=== PATIENT | male | born 1970 | race Asian ===

== ENCOUNTER 2021-04-23 12:24 | Emergency (ER) | payer BC ==
[~2021-04-23] VITALS: Ht 160 cm; Wt 72.6 kg
[2021-04-23 12:24] VITALS: BP_SYST 143
[2021-04-23] MEDS ORDERED: MECLIZINE HCL 25 MG TABLET (ANITVERT) PO ONE (13:00)
[2021-04-23 13:35] LABS: BASOPHILS % (AUTO) 0.3 % (0.0-2.0); EOSINOPHILS % (AUTO) 0.1 % (0.0-4.0); HEMATOCRIT 41.4 % (36-54); HEMOGLOBIN 14.1 g/dL (14.0-18.0); LYMPHOCYTES # (AUTO) 0.9 K/uL (1.0-5.5); LYMPHOCYTES % (AUTO) 6.7 % (20.5-51.5); MEAN CORPUSCULAR HEMOGLOBIN 28 pg (27-31); MEAN CORPUSCULAR HGB CONC 34 % (32-36); MEAN CORPUSCULAR VOLUME 84 fL (79.0-98.0); MONOCYTES # (AUTO) 0.4 K/uL (0.0-1.0); MONOCYTES % (AUTO) 3.2 % (1.7-9.3); NEUTROPHILS # (AUTO) 11.9 K/uL (1.8-7.7); NEUTROPHILS % (AUTO) 89.7 % (40.0-70.0); PLATELET COUNT (AUTO) 276 K/uL (130-430); RED BLOOD CELL COUNT(AUTO) 4.95 MIL/uL (4.2-6.2); RED CELL DISTRIBUTION WIDTH 13.3 % (9.0-15.0); WHITE BLOOD COUNT (AUTO) 13.2 K/uL (4.8-10.8)
[2021-04-23 13:44] LABS: CALCIUM 8.5 mg/dL (8.4-11.0); CREATININE 0.91 mg/dL (0.55-1.30); POTASSIUM 3.6 mmol/L (3.5-5.1)
[2021-04-23 13:50] LABS: TOTAL BILIRUBIN 0.8 mg/dL (0.0-1.0)
[2021-04-23] MEDS ORDERED: MECL-108 PO (14:21)
[2021-04-23 14:49] VITALS: BP_SYST 146
== END 2021-04-23 14:49 | disposition home or self-care (01) ==
LOC: SED 12:24
DX: R42 Dizziness and giddiness (principal); Z11.2 Encounter for screening for other bacterial diseases
CPT/HCPCS: 36415; 70450; 76376; 80053; 84484; 85025; 93005; 99285; J8597